=== PATIENT | female | born 1930 | race Caucasian/White ===

== ENCOUNTER → 2019-02-17 | Outpatient (CLI) | payer MEDICARE ==
[~2019-02-17] MED LIST: CAPT50 PO; CEPH500 PO; FEBU40TA PO; IRON18 MG PO; LISI20 PO; METO50 PO; Peridex480 ML PO; SERT25 PO
== END ==
LOC: LAB SHORT 17:06 → LAB 17:06
DX: L57.0 Actinic keratosis (principal); L08.9 Local infection of the skin and subcutaneous tissue, unspecified
CPT/HCPCS: 87070; 87205

== ENCOUNTER 2019-04-14 08:51 | Emergency (ER) | payer MEDICARE ==
[~2019-04-14] VITALS: Ht 162.6 cm; Wt 78.9 kg
[2019-04-14] MEDS ORDERED: Ultram50 MG PO (09:17)
== END 2019-04-14 09:25 | disposition home or self-care (01) ==
LOC: ER 08:51
DX: S00.33XA Contusion of nose, initial encounter (principal); W01.198A Fall on same level from slipping, tripping and stumbling with subsequent striking against other object, initial encounter; Z88.2 Allergy status to sulfonamides; Z79.899 Other long term (current) drug therapy; Z87.891 Personal history of nicotine dependence
CPT/HCPCS: 99283

== ENCOUNTER 2020-08-15 10:57 | Day surgery (SDC) | payer OTHER ==
[~2020-08-15] VITALS: Ht 162.6 cm; Wt 50.0 kg
[~2020-08-15 10:57] MED LIST changes: +Aspir 8181 MG PO; +CINA30 PO; +DOCU100 PO; +FAMO20 PO; +FEBUXOSTAT80 MG PO; +Ultram50 MG PO
== END 2020-08-15 13:13 | disposition home or self-care (01) ==
LOC: ORSCSDS 10:57
PROVIDERS: Internal Medicine Gastroenterology
PROC: 0D758ZZ Dilation of Esophagus, Via Natural or Artificial Opening Endoscopic (ICD-10-PCS; principal; 2020-08-15 12:00)
PROC: 0D568ZZ Destruction of Stomach, Via Natural or Artificial Opening Endoscopic (ICD-10-PCS; principal; 2020-08-15 12:00)
DX: R13.10 Dysphagia, unspecified (principal); K22.8 Other specified diseases of esophagus; K31.819 Angiodysplasia of stomach and duodenum without bleeding; I73.9 Peripheral vascular disease, unspecified; D50.9 Iron deficiency anemia, unspecified; Z87.891 Personal history of nicotine dependence; Z79.82 Long term (current) use of aspirin; Z79.899 Other long term (current) drug therapy
CPT/HCPCS: J2704; J7120

== ENCOUNTER → 2020-09-07 | Outpatient (CLI) | payer OTHER ==
[2020-09-07 15:27] LABS: BASOPHILS ABSOLUTE AUTO 0.14 K/mm3 (0.00-0.23); BASOPHILS PERCENT AUTO 2 % (0-2); EOSINOPHILS ABSOLUTE AUTO 0.09 K/mm3 (0.00-0.68); EOSINOPHILS PERCENT AUTO 1 % (0-6); Hemoglobin 10.7 g/dL (11.5-16.0); IMMATURE GRAN ABSOLUTE AUTO 0.04 K/mm3 (0.00-0.10); IMMATURE GRAN PERCENT AUTO 1 % (0-1); LYMPHOCYTES ABSOLUTE AUTO 0.98 K/mm3 (0.84-5.20); LYMPHOCYTES PERCENT AUTO 11 % (21-46); MONOCYTES ABSOLUTE AUTO 0.73 K/mm3 (0.16-1.47); MONOCYTES PERCENT AUTO 9 % (4-13); Mean Corpuscular HGB 21.3 pg (26.0-34.0); Mean Corpuscular HGB Conc 28.9 g/dL (31.5-36.5); Mean Corpuscular Volume 74 fL (80-100); NEUTROPHILS PERCENT AUTO 77 % (41-73); Platelet Count 313 K/mm3 (150-400); RDW Coefficient Variation 25.3 % (11.7-14.2); RDW Standard Deviation 64.1 fL (35.1-46.3); Red Blood Cell Count 5.02 M/mm3 (3.80-5.20); White Blood Cell Count 8.58 K/mm3 (4.00-11.30)
[2020-09-07 15:28] LABS: Mean Platelet Volume 10.2 fL (9.1-12.4)
[2020-09-07 15:37] LABS: Albumin, Blood 3.9 g/dL (3.4-5.0); Anion Gap 7 mmol/L (6-16); Blood Urea Nitrogen 28 mg/dL (8-24); Bun/Creatinine Ratio 26.7 (12.0-20.0); CO2, Blood 25 mmol/L (21-32); Calcium, Blood 9.5 mg/dL (8.5-10.1); Chloride, Blood 112 mmol/L (98-108); Creatinine, Blood 1.05 mg/dL (0.40-1.00); Glomerular Filtration Rate 52 (60-); Glucose, Blood 83 mg/dL (70-99); Phosphorus, Blood 3.3 mg/dL (2.5-4.9); Potassium, Blood 4.8 mmol/L (3.5-5.5); Sodium, Blood 144 mmol/L (136-145)
[2020-09-07 15:40] LABS: Percent Saturation 4.7 % (15.0-50.0)
== END | disposition home or self-care (01) ==
LOC: LAB SHORT 14:18 → LAB 14:18
PROVIDERS: Internal Medicine Hematology & Oncology; Internal Medicine Nephrology
DX: N18.2 Chronic kidney disease, stage 2 (mild) (principal); D50.9 Iron deficiency anemia, unspecified
CPT/HCPCS: 80069; 82728; 83540; 83550; 85025